=== PATIENT | male | born 1965 | race Caucasian/White ===

== ENCOUNTER → 2025-02-04 06:24 | Outpatient (REF) | payer OTHER, SELFPAY | LOC: RAD 06:24 | PROVIDERS: ATTENDING PHYSICIAN Internal Medicine Nephrology; FAMILY PHYSICIAN Internal Medicine | DX: Z94.4 Liver transplant status (principal); N18.32 Chronic kidney disease, stage 3b | CPT/HCPCS: 76775 ==